=== PATIENT | male | born 1955 | race Caucasian/White ===

== ENCOUNTER 2024-12-01 00:10 | Day surgery (SDC) | payer MEDICARE, SELFPAY ==
[2024-08-16 09:54] VITALS: BMI 25.6
--- NOTE | 2024-09-03 12:40 | SUR.PREOP ---
Pt called to cancel her procedure on 09/05 due to provider availability. Pt rescheduled to 12/01 at 0800.
[2024-11-23 12:05] VITALS: BMI 26.9
--- OUTSIDE RECORDS SUMMARY | 2024-12-01 00:13 | XMS_ITS | Encounter Summary ---
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 Historical Provider Final Res ult documented in this encounter Visit Diagnoses Not on filedocumented in this encounter Care Teams Sleever Relationship Specialty Start Date End Date Nikhil Vergara MD PCP - General Internal Medicine 03/03/19 documented as of this encounter
--- OUTSIDE RECORDS SUMMARY | 2024-12-01 00:13 | XMS_ITS | Encounter Summary ---
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 Historical Provider [facility] RAYA Final Result documented in this encounter Visit Diagnoses Not on filedocumented in this encounter Care Teams Quill Cleaning Machine Operator Relationship Specialty Start Date End Date Nikhil Vergara MD PCP - General Internal Medicine 03/03/19 documented as of this encounter
--- OUTSIDE RECORDS SUMMARY | 2024-12-01 00:13 | XMS_ITS | Encounter Summary ---
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
--- OUTSIDE RECORDS SUMMARY | 2024-12-01 00:13 | XMS_ITS | Encounter Summary ---
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 Historical Provider [facility] RAAY Final Result documented in this encounter Visit Diagnoses Not on filedocumented in this encounter Care Teams Care Provider Relationship Specialty Start Date End Date Nikhil Vergara MD PCP - General Internal Medicine 03/03/19 documented as of this encounter
--- OUTSIDE RECORDS SUMMARY | 2024-12-01 00:13 | XMS_ITS | Data Portability ---
Author Organization [facility] [address] [place] [address] Care Team Providers Care [employer] Name Role Phone BERKLEY VERGARA Primary Care Provider Unavailabl e Assessment Encounter Date Assessment Date Assessment LastModified by Organization Details LastModified Time 11/02/2023 11/02/2023 Hypertension blood pressure doing fine dyslipidemia atorvastatin CAD secondary preventive measures discussed he has some insurance issues so he wants to hold off on doing any other testing right now I did order a CMP and a lipid he will consider that at we will get records from previous clinic he thinks that he may have had a pneumococcal vaccination before follow-up with me in 6 months [email or web address] Not available 11/02/2023 14:13:42 05/02/2024 05/02/2024 hypertension controlled ASHD no signs of recurrence or decompensation dyslipidemia check labs scheduled Cologuard as well follow up 6 months. Not available 05/07/2024 12:04:16 10/31/2024 10/31/2024 continue current therapy blood pressure on recheck 130/84 blood work has been ordered flu Pneumovax and Tdap declined follow up 6 months [email or web address] Not available 11/04/2024 16:24:59 Plan of Treatment Reminders Order Date Submit Date Provider Last Modified By Organization Details Last Modified Time Details Appointments ANY 15 2024 09:00A M Berkley Vergara MD Not available Not available Not available Lab CBC w/ auto diff 2024 025 [id number] [facility], [address], [address], [place], [address], 10/31/2024 13:47:24 CMP, serum or plasma 2024 025 [facility], [address], [address], [place], [address], 10/31/2024 13:47:24 PSA, total, serum or plasma 2024 025 [id number] [facility], [address], [address], [place], [address], 10/31/2024 13:47:24 lipid panel, serum 2024 025 [facility], [address], [address], [place], [address], 10/31/2024 13:47:24 noninv asive colore ctal cancer DNA + occult blood screen ing, QL, stool 2023 024 [facility] ([facility]ologuard Orders Only), [address], [address], [place], [address], 05/23/2024 20:59:38 CBC w/ auto diff 2023 024 [facility], Gustavo Wilcoxflorecita Arias, [facility], [place], [address], 10/17/2024 03:32:57 CMP, serum or plasma 2023 024 [facility] Gustavo Ari[facility], [facility], [place], [address], 10/17/2024 03:32:56 PSA, total, serum or plasma 2023 024 [facility], [facility], [facility], [place], [address], 10/19/2024 10:02:34 lipid panel, serum 2023 024 [facility], [address] [facility] [address], [address], [place], [address], 10/17/2024 03:32:54 lipid panel, serum 2023 024 [facility], [address] [facility], [address], [place], [address], 11/05/2023 18:45:40 CMP, serum or plasma 2023 024 [facility], [address] [facility], [address], [place], [address], 11/05/2023 18:06:27 Referral None record ed. Procedures None record ed. Surgeries None record ed. Imaging None record ed. Medication Orders None record ed. Patient TargetsNo targets recorded. Patient Instructions Encounter Date Encounter Id Patient Instructions Last Modified By Organization Details Last Modified Time 10/31/2024 [id number] A healthy lifestyle: care instructions [email or web address] Not available 10/31/2024 13:47:24 Reason for Referral None Reported. Results Created Date Observation Date Name Description Value Unit Range Abnormal Flag Note LastModifiedBy Organization Detail LastModifiedTime 11/05/1911/05/2023 COMPR EHENS ISMAEL METAB OLIC PANEL glucose 106 mg/dL 65-99 high Fasti ng refer ence inter luba For someo ne witho ut known diabe owen, a gluco se value betwe en 100 and 125 mg/dL is consi stent with predi abete s and shoul d be confi rmed with a follo w-up test. Not Available [facility] [address] [place], [address], 11/05/2023 18:06:27 11/05/19 24 11/05/2023 COMPR EHENS ISMAEL METAB OLIC PANEL urea nitrogen (BUN) 17 mg/dL 7-25 normal Not Available [facility] [address] [place], [address], 11/05/2023 18:06:27 11/05/19 24 11/05/2023 COMPR EHENS ISMAEL METAB OLIC PANEL creatinine 1.16 mg/dL 0.70-1 .35 normal Not Available [address], [address], 11/05/2023 18:06:27 11/05/19 24 11/05/2023 COMPR EHENS ISMAEL METAB OLIC PANEL eGFR 69 mL/mi n/1.7 3m2 > or = 60 normal Not Available [address], [address], 11/05/2023 18:06:27 11/05/19 24 11/05/2023 COMPR EHENS ISMAEL METAB OLIC PANEL BUN/creatini ne ratio SEE NOTE: (calc ) 6-22 Not Repor dao: BUN and Creat inine are withi n refer ence range . Not Available [address], [address], 11/05/2023 18:06:27 11/05/19 24 11/05/2023 COMPR EHENS ISMAEL METAB OLIC PANEL sodium 139 mmol/ L 135-14 6 normal Not Available [address], [address], 11/05/2023 18:06:27 11/05/19 24 11/05/2023 COMPR EHENS ISMAEL METAB OLIC PANEL potassium 4.3 mmol/ L 3.5-5. 3 normal Not Available [address], [address], 11/05/2023 18:06:27 11/05/19 24 11/05/2023 COMPR EHENS ISMAEL METAB OLIC PANEL chloride 102 mmol/ L 98-110 normal Not Available [address], [address], 11/05/2023 18:06:27 11/05/19 24 11/05/2023 COMPR EHENS ISMAEL METAB OLIC PANEL carbon dioxide 28 mmol/ L 20-32 normal Not Available [facility] [address] [address], [place], [address], 11/05/2023 18:06:27 11/05/19 24 11/05/2023 COMPR EHENS ISMAEL METAB OLIC PANEL calcium 9.8 mg/dL 8.6-10 .3 normal Not Available [address], [address], 11/05/2023 18:06:27 11/05/19 24 11/05/2023 COMPR EHENS ISMAEL METAB OLIC PANEL protein, total 7.1 g/dL 6.1-8. 1 normal Not Available [address], [address], 11/05/2023 18:06:27 11/05/19 24 11/05/2023 COMPR EHENS ISMAEL METAB OLIC PANEL albumin 4.7 g/dL 3.6-5. 1 normal Not Available [address], [address], 11/05/2023 18:06:27 11/05/19 24 11/05/2023 COMPR EHENS ISMAEL METAB OLIC PANEL globulin 2.4 g/dL_ (calc ) 1.9-3. 7 normal Not Available [address], [address], 11/05/2023 18:06:27 11/05/19 24 11/05/2023 COMPR EHENS ISMAEL METAB OLIC PANEL albumin/glob ulin ratio 2.0 (calc ) 1.0-2. 5 normal Not Available [address], [address], 11/05/2023 18:06:27 11/05/19 24 11/05/2023 COMPR EHENS ISMAEL METAB OLIC PANEL bilirubin, total 1.0 mg/dL 0.2-1. 2 normal Not Available [address], [address], 11/05/2023 18:06:27 11/05/19 24 11/05/2023 COMPR EHENS ISMAEL METAB OLIC PANEL alkaline phosphatase 81 U/L 35-144 normal Not Available [address], [address], 11/05/2023 18:06:27 11/05/19 24 11/05/2023 COMPR EHENS ISMAEL METAB OLIC PANEL AST 27 U/L 10-35 normal Not Available [address], [address], 11/05/2023 18:06:27 11/05/19 24 11/05/2023 COMPR EHENS ISMAEL METAB OLIC PANEL ALT 25 U/L 9-46 normal Not Available [address], [address], 11/05/2023 18:06:27 11/05/19 24 11/05/2023 LIPID PANEL , STAND DANIEL cholesterol, total 124 mg/dL <200 normal Not Available [address], [address], 11/05/2023 18:45:40 11/05/19 24 11/05/2023 LIPID PANEL , STAND DANIEL HDL cholesterol 50 mg/dL > or = 40 normal Not Available [address], [address], 11/05/2023 18:45:40 11/05/19 24 11/05/2023 LIPID PANEL , STAND DANIEL triglyceride s 76 mg/dL <150 normal Not Available [address], [address], 11/05/2023 18:45:40 11/05/19 24 11/05/2023 LIPID PANEL , STAND DANIEL LDL-choleste rol 58 mg/dL _(michaela c) normal Refer ence range : <100 Lois able range <100 mg/dL for prima ry preve ntion ; <70 mg/dL for patie nts with CHD or diabe tic patie nts with > or = 2 CHD risk facto rs. LDL-C is now calcu lated using the Rain n-Hop kins calcu leighton n, which is a valid ated novel metho d provi ding idris r accur acy than the Fried stephanie equat ion in the estim ation of LDL-C . Rain rubio SS et al. AUSTIN. 2013; 310(1 9): 2061- 2068 (http ://ed ucati on.Qu Rival IQ. com/f aq/FA Q164) Not Available [facility] [address] [address] [place], [address], 11/05/2023 18:45:40 11/05/19 24 11/05/2023 LIPID PANEL , STAND DANIEL chol/HDLC ratio 2.5 (calc ) <5.0 normal Not Available [facility] [address] [address] [place], [address], 11/05/2023 18:45:40 11/05/19 24 11/05/2023 LIPID PANEL , STAND DANIEL non HDL cholesterol 74 mg/dL _(michaela c) <130 normal For patie nts with diabe owen plus 1 major ASCVD risk facto r, treat ing to a non-H DL-C goal of <100 mg/dL (LDL- C of <70 mg/dL ) is consi donald dickerson optio n. Not Available [facility] [address] [address] [place], [address], 11/05/2023 18:45:40 11/05/19 24 11/05/2023 LIPID PANEL , STAND DANIEL copy received from: [facility] [address] [place] [place] [phone] Not Available [facility] [address] [address] [place], [address], 11/05/2023 18:45:40 11/05/19 24 11/05/2023 HEPAT IC FUNCT ION PANEL , PLASM A protein, total 7.6 g/dL 6.4-8. 4 normal Not Available [address], [address], 11/05/2023 18:45:40 11/05/19 24 11/05/2023 HEPAT IC FUNCT ION PANEL , PLASM A albumin 4.8 g/dL 3.6-5. 1 normal Not Available [address], [address], 11/05/2023 18:45:40 11/05/19 24 11/05/2023 HEPAT IC FUNCT ION PANEL , PLASM A globulin 2.8 g/dL_ (calc ) 2.2-4. 0 normal Not Available [address], [address], 11/05/2023 18:45:40 11/05/19 24 11/05/2023 HEPAT IC FUNCT ION PANEL , PLASM A albumin/glob ulin ratio 1.7 (calc ) 0.9-2. 3 normal Not Available [address], [address], 11/05/2023 18:45:40 11/05/19 24 11/05/2023 HEPAT IC FUNCT ION PANEL , PLASM A bilirubin, total 1.0 mg/dL 0.2-1. 2 normal Not Available [address], [address], 11/05/2023 18:45:40 11/05/19 24 11/05/2023 HEPAT IC FUNCT ION PANEL , PLASM A bilirubin, direct 0.2 mg/dL < or = 0.2 normal Not Available [address], [address], 11/05/2023 18:45:40 11/05/19 24 11/05/2023 HEPAT IC FUNCT ION PANEL , PLASM A bilirubin, indirect 0.8 mg/dL _(michaela c) 0.2-1. 2 normal Not Available [address] [address] [place], [address], 11/05/2023 18:45:40 11/05/19 24 11/05/2023 HEPAT IC FUNCT ION PANEL , PLASM A alkaline phosphatase 78 U/L 35-144 normal Not Available [facility] [address] [address] [place], [address], 11/05/2023 18:45:40 11/05/19 24 11/05/2023 HEPAT IC FUNCT ION PANEL , PLASM A AST 25 U/L 10-35 normal Not Available [address] [address] [place], [address], 11/05/2023 18:45:40 11/05/19 24 11/05/2023 HEPAT IC FUNCT ION PANEL , PLASM A ALT 25 U/L 9-46 normal Not Available [address] [address] [place], [address], 11/05/2023 18:45:40 11/05/19 24 11/05/2023 HEPAT IC FUNCT ION PANEL , PLASM A copy received from: [facility] [address] [facility] [address] [facility] [place] [phone] Not Available [facility] [address] [address] [place], [address], 11/05/2023 18:45:40 05/18/20 24 05/18/2024 COLOG UARD cologuard result reportable POSITI VE negati ve abnormal POSIT ISMAEL TEST RESUL T. A posit ismael Colog uard resul t shoul d be follo wed with a colon oscop y or visua l exami natio n of the colon . The eliane l value (refe rence range ) for this assay is negat ismael. TEST DESCR IPTIO N: Aneth site algor ithmi c harika sis of stool DNA-b edel krishnan with hemog lobin immun oassa y. Quant itati ve value s of indiv idual bioma rkers are not repor table and are not assoc iated with indiv idual bioma rker resul t refer ence range s. Colog uard is inten ded for color ectal cance r scree maryam of adult s of eithe r sex, 45 years or older , who are at [facility] for color ectal cance r (CRC) . Colog uard has been appro real for use by the U.S. FDA. The perfo rmanc e of Colog uard was estab lishe d in a cross secti onal study of [facility] adult s aged 50-84 . Colog uard perfo rmanc e in patie nts ages 45 to 49 years was estim ated by sub-g roup harika sis of near- age group s. Colon oscop ies perfo rmed for a posit ismael resul t may find as the most clini lesley signi fican t lesio n: color ectal cance r [4.0% ], advan woody adeno ma (incl uding sessi le beth dao polyp s great er than or equal to 1cm diame ter) [20%] or non- advan woody adeno ma [31%] ; or no color ectal neopl sarbjit [45%] . These estim ates are deriv ed from a prosp ectiv e cross -sect ional scree maryam study of 10,00 0 indiv idual s at [facility] risk for color ectal cance r who were scree vlad with both Colog uard and colon oscop y. (Sarah Quick et al, N Engl J Med 2014; 370(1 4):12 86-12 97.) Colog uard may produ ce a false negat ismael or false posit ismael resul t (no color ectal cance r or preca ncero us polyp prese nt at colon oscop y follo w up). A negat ismael Colog uard test resul t does not guara ntee the absen ce of CRC or advan woody adeno ma (pre- cance r). The curre nt Colog uard scree maryam inter luba is every 3 years . ([place]ms[place] Cance r Socie ty and U.S. Multi -Soci ety Task Force ). Colog uard perfo rmanc e data in a 10,00 0 patie nt pivot al study using colon oscop y as the refer ence metho d can [facility] ion: www.e xactl abs.c om/re suljuan . Addit ional descr iptio n of the Colog uard test proce ss, warni ngs and preca ution s can be found at www.c ologu daniel.c om. Not Available [facility] (Cologuard Orders Only) [address], [place], [address], 05/23/2024 20:59:38 10/16/19 25 10/17/2024 LIPID PANEL , STAND DANIEL cholesterol, total 136 mg/dL <200 normal Not Available [facility] [address] [address] [place], [address], 10/17/2024 03:32:53 10/16/19 25 10/17/2024 LIPID PANEL , STAND DANIEL HDL cholesterol 61 mg/dL > or = 40 normal Not Available [facility] [address] [address] [place], [address], 10/17/2024 03:32:53 10/16/19 25 10/17/2024 LIPID PANEL , STAND DANIEL triglyceride s 64 mg/dL <150 normal Not Available [facility] [address] [address] [place], [address], 10/17/2024 03:32:53 10/16/19 25 10/17/2024 LIPID PANEL , STAND DANIEL LDL-choleste rol 61 mg/dL _(michaela c) normal Refer ence range : <100 Lois able range <100 mg/dL for prima ry preve ntion ; <70 mg/dL for patie nts with CHD or diabe tic patie nts with > or = 2 CHD risk facto rs. LDL-C is now calcu lated using the [facility] n-Hop kins calcu latio n, which is a valid ated novel metho d provi ding idris r accur acy than the Fried stephanie equat ion in the estim ation of LDL-C . Rain n SS et al. AUSTIN. 2013; 310(1 9): 2061- 2068 (http ://ed ucati on.Qu jonoAmedica cassiVeebeam. com/f aq/FA Q164) Not Available [facility] [address] [address] [place], [address], 10/17/2024 03:32:53 10/16/19 25 10/17/2024 LIPID PANEL , STAND DANIEL chol/HDLC ratio 2.2 (calc ) <5.0 normal Not Available [address] [address] [facility] [place], [address], 10/17/2024 03:32:53 10/16/1910/17/2024 LIPID PANEL , STAND DANIEL non HDL cholesterol 75 mg/dL _(michaela c) <130 normal For patie nts with diabe owen plus 1 major ASCVD risk facto r, treat ing to a non-H DL-C goal of <100 mg/dL (LDL- C of <70 mg/dL ) is consi dered a thera peuti c optio n. Not Available [address] [address] [address] , [place], [address], 10/17/2024 03:32:53 10/16/1910/17/2024 COMPR EHENS ISMAEL METAB OLIC PANEL glucose 111 mg/dL 65-99 high Fasti ng refer ence inter luba For someo ne witho ut known diabe owen, a gluco se value betwe en 100 and 125 mg/dL is consi stent with predi abete s and shoul d be confi rmed with a follo w-up test. Not Available [address] [address] [address], [place], [address], 10/17/2024 03:32:56 10/16/1910/17/2024 COMPR EHENS ISMAEL METAB OLIC PANEL urea nitrogen (BUN) 13 mg/dL 7-25 normal Not Available [address], [address], 10/17/2024 03:32:56 10/16/19 25 10/17/2024 COMPR EHENS ISMAEL METAB OLIC PANEL creatinine 1.14 mg/dL 0.70-1 .35 normal Not Available [address], [address], 10/17/2024 03:32:56 10/16/19 25 10/17/2024 COMPR EHENS ISMAEL METAB OLIC PANEL eGFR 70 mL/mi n/1.7 3m2 > or = 60 normal Not Available [address], [address], 10/17/2024 03:32:56 10/16/19 25 10/17/2024 COMPR EHENS ISMAEL METAB OLIC PANEL BUN/creatini ne ratio SEE NOTE: (calc ) 6-22 Not Repor dao: BUN and Creat inine are withi n refer ence range . Not Available [address], [address], 10/17/2024 03:32:56 10/16/19 25 10/17/2024 COMPR EHENS ISMAEL METAB OLIC PANEL sodium 139 mmol/ L 135-14 6 normal Not Available [address], [address], 10/17/2024 03:32:56 10/16/19 25 10/17/2024 COMPR EHENS ISMAEL METAB OLIC PANEL potassium 4.0 mmol/ L 3.5-5. 3 normal Not Available [address], [address], 10/17/2024 03:32:56 10/16/19 25 10/17/2024 COMPR EHENS ISMAEL METAB OLIC PANEL chloride 102 mmol/ L 98-110 normal Not Available [address] [place], [address], 10/17/2024 03:32:56 10/16/19 25 10/17/2024 COMPR EHENS ISMAEL METAB OLIC PANEL carbon dioxide 29 mmol/ L 20- normal Not Available [address], [address], 10/17/2024 03:32:56 10/16/19 25 10/17/2024 COMPR EHENS ISMAEL METAB OLIC PANEL calcium 9.3 mg/dL 8.6-10 .3 normal Not Available [address], [address], 10/17/2024 03:32:56 10/16/19 25 10/17/2024 COMPR EHENS ISMAEL METAB OLIC PANEL protein, total 6.7 g/dL 6.1-8. 1 normal Not Available [address], [address], 10/17/2024 03:32:56 10/16/19 25 10/17/2024 COMPR EHENS ISMAEL METAB OLIC PANEL albumin 4.6 g/dL 3.6-5. 1 normal Not Available [address], [address], 10/17/2024 03:32:56 10/16/19 25 10/17/2024 COMPR EHENS ISMAEL METAB OLIC PANEL globulin 2.1 g/dL_ (calc ) 1.9-3. 7 normal Not Available [address], [address], 10/17/2024 03:32:56 10/16/19 25 10/17/2024 COMPR EHENS ISMAEL METAB OLIC PANEL albumin/glob ulin ratio 2.2 (calc ) 1.0-2. 5 normal Not Available [address], [address], 10/17/2024 03:32:56 10/16/19 25 10/17/2024 COMPR EHENS ISMAEL METAB OLIC PANEL bilirubin, total 1.0 mg/dL 0.2-1. 2 normal Not Available [address], [address], 10/17/2024 03:32:56 10/16/19 25 10/17/2024 COMPR EHENS ISMAEL METAB OLIC PANEL alkaline phosphatase 75 U/L 35-144 normal Not Available [facility] [address], [address], 10/17/2024 03:32:56 10/16/19 25 10/17/2024 COMPR EHENS ISMAEL METAB OLIC PANEL AST 25 U/L 10-35 normal Not Available [address], [address], 10/17/2024 03:32:56 10/16/19 25 10/17/2024 COMPR EHENS ISMAEL METAB OLIC PANEL ALT 23 U/L 9-46 normal Not Available [address], [address], 10/17/2024 03:32:56 10/16/19 25 10/17/2024 CBC (INCL UDES DIFF/ PLT) white blood cell count 4.7 thous and/u L 3.8-10 .8 normal Not Available [address], [address], 10/17/2024 03:32:57 10/16/19 25 10/17/2024 CBC (INCL UDES DIFF/ PLT) red blood cell count 4.56 nolan on/uL 4.20-5 .80 normal Not Available [address], [address], 10/17/2024 03:32:57 10/16/19 25 10/17/2024 CBC (INCL UDES DIFF/ PLT) hemoglobin 13.5 g/dL 13.2-1 7.1 normal Not Available [address], [address], 10/17/2024 03:32:57 10/16/1910/17/2024 CBC (INCL UDES DIFF/ PLT) hematocrit 41.0 % 38.5-5 0.0 normal Not Available [address], [address], 10/17/2024 03:32:57 10/16/1910/17/2024 CBC (INCL UDES DIFF/ PLT) MCV 89.9 fL 80.0-1 00.0 normal Not Available [address], [address], 10/17/2024 03:32:57 10/16/1910/17/2024 CBC (INCL UDES DIFF/ PLT) MCH 29.6 pg 27.0-3 3.0 normal Not Available [address], [address], 10/17/2024 03:32:57 10/16/1910/17/2024 CBC (INCL UDES DIFF/ PLT) MCHC 32.9 g/dL 32.0-3 6.0 normal For adult s, a sligh t decre ase in the calcu lated MCHC value (in the range of 30 to 32 g/dL) is most likel y not clini lesley signi bereket t; suman er, it shoul d be inter prete d with cauti on in corre latio n with other red cell gideon eters and the patie nt's clini michaela condi tion. Not Available [address], [address], 10/17/2024 03:32:57 10/16/1910/17/2024 CBC (INCL UDES DIFF/ PLT) RDW 12.3 % 11.0-1 5.0 normal Not Available [address], [address], 10/17/2024 03:32:57 10/16/19 25 10/17/2024 CBC (INCL UDES DIFF/ PLT) platelet count 250 thous and/u L 140-40 0 normal Not Available [address], [address], 10/17/2024 03:32:57 10/16/19 25 10/17/2024 CBC (INCL UDES DIFF/ PLT) MPV 10.8 fL 7.5-12 .5 normal Not Available [address], [address], 10/17/2024 03:32:57 10/16/19 25 10/17/2024 CBC (INCL UDES DIFF/ PLT) absolute neutrophils 2923 cells /uL 1500-7 800 normal Not Available [address], [address], 10/17/2024 03:32:57 10/16/19 25 10/17/2024 CBC (INCL UDES DIFF/ PLT) absolute lymphocytes 1039 cells /uL 850-39 00 normal Not Available [address], [address], 10/17/2024 03:32:57 10/16/19 25 10/17/2024 CBC (INCL UDES DIFF/ PLT) absolute monocytes 479 cells /uL 200-95 0 normal Not Available [address], [address], 10/17/2024 03:32:57 10/16/19 25 10/17/2024 CBC (INCL UDES DIFF/ PLT) absolute eosinophils 240 cells /uL 15-500 normal Not Available [address], [address], 10/17/2024 03:32:57 10/16/19 25 10/17/2024 CBC (INCL UDES DIFF/ PLT) absolute basophils 19 cells /uL 0-200 normal Not Available [address], [address], 10/17/2024 03:32:57 10/16/19 25 10/17/2024 CBC (INCL UDES DIFF/ PLT) neutrophils 62.2 % normal Not Available [address], [address], 10/17/2024 03:32:57 10/16/19 25 10/17/2024 CBC (INCL UDES DIFF/ PLT) lymphocytes 22.1 % normal Not Available [facility] [address], [address], 10/17/2024 03:32:57 10/16/19 25 10/17/2024 CBC (INCL UDES DIFF/ PLT) monocytes 10.2 % normal Not Available [address], [address], 10/17/2024 03:32:57 10/16/19 25 10/17/2024 CBC (INCL UDES DIFF/ PLT) eosinophils 5.1 % normal Not Available [address], [address], 10/17/2024 03:32:57 10/16/19 25 10/17/2024 CBC (INCL UDES DIFF/ PLT) basophils 0.4 % normal Not Available [address], [address], 10/17/2024 03:32:57 10/16/1910/17/2024 PSA, TOTAL PSA, total 2.16 NG/mL < or = 4.00 normal The total PSA value from this assay syste m is stand ardiz ed again st the WHO stand daniel. The test resul t will be appro ximat josey 20% lower when elvin red to the equim olar- stand ardiz ed total PSA ([place]augherty man Coult er). Elvin rison of seria l PSA resul ts shoul d be inter prete d with this fact in mind. This test was perfo rmed using the Sieme ns chemi lumin escen t metho d. Value s obtai vlad from diffe rent assay metho ds canno t be used inter burnett eably . PSA level s, regar dless of value , shoul d not be inter prete d as absol [place] evide nce of the prese nce or absen ce of disea se. Not Available [facility] [address] [place], [address], 10/17/2024 03:32:58 Result Notes None recorded. Problems Name Problem SNOMED Code Status Onset Date Resolution Date Notes Provider Name and Address Organization Details Recorded Time Essential hypertension 33525764 Active 2024 RAFAEL Hernandez, [place] - [facility] 10:38:09 Coronary atherosclerosi s 112681528 Active 2024 Chris Ramsey [place] null, [place] [facility] 10:38:10 Screening for malignant neoplasm of colon Active 2024 Chris Ramsey [place], [place] [facility] 10:38:12 Hyperlipidemia 89360477 Active 2024 Chris Ramsey [place] [facility] 10:38:14 Body mass index 25-29 - overweight 015863941 Active 2024 Chris Ramsey [place] [facility] 10:38:25 Pneumococcal vaccination declined 523728122 Active 2024 Berkley Vergara MD Attn: Yobani bynum,[address] [facility], [place], [address], [place] [facility] 16:25:21 Tetanus vaccination declined by patient 234120423 Active 2024 Berkley Vergara MD Attn: Yobani bynum,[address] [facility], [place], [address], [place] [facility] 16:25:21 Influenza vaccination declined 000257636 Active 2024 Berkley Vergara MD Attn: Yobani bynum,[address] [facility], [place], [address], [place] - [facility] 5 16:25:23 Problem Notes None recorded. Medical Equipment None Reported. Allergies Allergen ID Allergen Name Allergen Category Reaction Reaction Severity Criticality Documentation Date Start Date Code Code System Note Provider Name and Address Organization Details Recorded Time 866025 Plavix medicatio n hives Not available Not available 11/02/2023 [id number] RxNorm Not Available Not Available Not Available Medications Name Sig Start Date Stop Date Status Note LastModified by Organization Details LastModified Time amoxicillin 500 mg capsule TAKE 1 CAPSULE BY MOUTH THREE TIMES DAILY UNTIL GONE 11/01 completed Not Available Not Available Not Available atorvastati n 80 mg tablet TAKE 1 TABLET BY MOUTH EVERY OTHER DAY ALTERNATI NG WITH 1/2 TAB EVERY OTHER NIGHT active Not Available Not Available No t Available hydrocodone 5 mg-acetamin ophen 325 mg tablet TAKE 1 TABLET BY MOUTH EVERY 4 TO 6 HOURS NEEDED FOR PAIN (CAUTION SEDATION) 10/31 completed Not Available Not Available Not Available isosorbide mononitrate ER 30 mg tablet,exte nded release 24 hr TAKE 1 TABLET BY MOUTH ONCE DAILY active Not Available Not Available No t Available amlodipine 5 mg tablet TAKE 1 TABLET BY MOUTH ONCE DAILY active Not Available Not Available No t Available aspirin 81 mg capsule Take 1 capsule every day by oral route. active Not Available Not Available No t Available Vitals Date Recorded Body height Body mass index (BMI) Body weight Respiratory rate Heart rate Oxygen saturation Oxygen saturation in Arterial blood by Pulse oximetry Systolic blood pressure Diastolic blood pressure Provider Name and Address Organization Details Last Updated DateTime 4 180.34 cm 26.9 kg/m2 90597.3 3 g 14 /min 62 /min 97 % 97 % 136 mm[Hg] 82 mm[Hg] TOM Ramirez [place] - [facility] 4 09:59:52 Date Recorded Body height Body mass index (BMI) Body weight Heart rate Oxygen saturation Oxygen saturation in Arterial blood by Pulse oximetry Systolic blood pressure Diastolic blood pressure Provider Name and Address Organization Details Last Updated DateTime 4 180.34 cm 24.8 kg/m2 68754 g 50 /min 98 % 98 % 138 mm[Hg] 68 mm[Hg] Yadira Barr [place] - [facility] 4 10:03:30 Date Recorded Body height Body mass index (BMI) Body weight Heart rate Oxygen saturation Oxygen saturation in Arterial blood by Pulse oximetry Systolic blood pressure Diastolic blood pressure Systolic blood pressure Diastolic blood pressure Provider Name and Address Organization Details Last Updated DateTime 180.34 cm 26.1 kg/m2 13614.0 5 g 68 /min 98 % 98 % 140 mm[Hg] 76 mm[Hg] 130 mm[Hg] 84 mm[Hg] Yadira Barbara RAFAEL [place] - [facility] 5 10:25:01 Social History Question Answer Notes LastModified by Organizat ion Details LastModified Time Tobacco Smoking Status Former Smoker quit 11 yrs ago 11/02/23 TOM Ramirez, [facility] 11/02/2023 09:56:53 What Is Your Level Of Alcohol Consumption? Occasional Information not available 10/31/2024 What Is Your Level Of Caffeine Consumption? Moderate Information not available 10/31/2024 What Was The Date Of Your Most Recent Tobacco Screening? 10/31/2024 Information not available 10/31/2024 What Is Your Current Pack Years? [email or web address] [email or web address] Information not available 11/02/2023 At What Age Did You Start Smoking Tobacco? 15 Information not available 11/02/2023 How Much Tobacco Do You Smoke? 2 PPD Information not available 11/02/2023 Do You Use Any Illicit Or Recreational Drugs? No Information not available 10/31/2024 Has Tobacco Cessation Counseling Been Provided? Yes Information not available 10/31/2024 On What Date Was Tobacco Cessation Counseling Provided? 10/31/2024 Information not available 10/31/2024 How Many Years Have You Smoked Tobacco? 43 Information not available 11/02/2023 Do You Or Have You Ever Used Any Other Forms Of Tobacco Or Nicotine? No Information not available 10/31/2024 Sex: Unknown Functional Status None recorded. Mental Status None recorded. Family History Relationship Description Onset Age of this Age Resolved Age Notes LastModified by Organization Details LastModified Time Father Diabetes mellitus [email or web address] Not available 12/2023 09:57:21 Father Congestive heart failure [email or web address] Not available 12/2023 09:57:48 Medical History Condition Response Heart Attack ([place]) Y Immunizations Vaccine Type Date Status Note Provider Nam e and Address Organization Details Recorded Time COVID-19, mRNA, LNP-S, PF, 100 mcg/0.5mL dose or 50 mcg/0.25mL dose 06/23/2021 completed Shruthi Manuel [place] null, [place] - [facility] 10/31/2024 09:19:37 COVID-19 vaccine, vector-nr, rS-Ad26, PF, 0.5 mL 01/10/2021 completed Shruthi Manuel [place], [place] - [facility] 10/31/2024 09:19:37 Past Encounters Encounter ID Performer Location Encounter Start Date Encounter Closed Date Diagnosis/Indication Diagnosis SNOMED-CT Code Diagnosis ICD10 Code Diagnosis Note [id number] MD Dali Cole (Adult Med) [address] [place] [address] [phone] 11/02/2023 09:39:32 11/02/2023 11:00:20 Essential hypertension 80987379 I10 Hyperlipidemia 05858433 E78.5 Coronary atherosclerosis 711330124 I25.10 [id number] [facility] [address] [place] [address] [id number] 05/02/2024 09:46:28 05/02/2024 10:40:11 Essential hypertension 25851615 I10 Coronary atherosclerosis 787425911 I25.10 Screening for malignant neoplasm of colon 499531560 Z12.11 Hyperlipidemia 79651697 E78.5 [id number] MD Dali Cole (Adult Med) [address] [place] [address] [id number] 10/31/2024 09:41:35 10/31/2024 10:43:17 Body mass index 25-29 - overweight 639060994 Z68.26 Essential hypertension 50458916 I10 Coronary atherosclerosis 116985171 I25.10 Hyperlipidemia 24385514 E78.5 Overweight 530775724 E66 .3 Influenza vaccination declined 000906170 Z28.21 Tetanus va ccination declined by patient 822261925 Z28.21 Pneumococc al vaccination declined 416771483 Z28.21 Health Concerns Section Related Observation LastModified by Organization Detai ls LastModified Time None Recorded Concern Status LastModified by Organization Details LastModified Time None Recorded Advance Directives Directive None Recorded Payers Encounter Date Sequence Insurance Name Policy Number Policy Zaidi Covered Member ID Zaidi Member ID Guarantor Name 11/02/2023 1 *SELF PAY* Bandar Vazquez 05/02/2024 1 *SELF PAY* Bandar Vazquez 10/31/2024 1 [employer] (MEDICARE REPLACEMENT/A DVANTAGE - PPO) Eugene Vazquez [id number] Eugene Vazquez Notes Date Note Type Note Provider Name and Address Organization Details Recorded Time 4 text/html Hypertension no headache no dizzinessDyslipidemia taking his atorvastatin without side effectsCAD stent no chest pain or shortness of breath Berkley Vergara MD Attn: Accounting, [address] [place], [address], [facility] [place] 11/02/2023 14:14:04 4 text/html hypertension no headache or dizziness. CAD no angina or anginal equivalents. Dyslipidemia diet is good taking his atorvastatin without any side effects Berkley Vergara MD Attn: [employer]ing[address] [place], [address], [facility] [place] 05/07/2024 12:04:32 5 text/html hypertension no headache or dizziness CAD no anginal equivalents hyperlipidemia he is taking the atorvastatin without any problems Berkley Vergara MD Attn: Accounting[address] [place], [address], [facility] [place] 11/04/2024 16:25:43
--- OUTSIDE RECORDS SUMMARY | 2024-12-01 00:13 | XMS_ITS | Data Portability ---
Author Organization [place] - S [employer] [place], Main Office Address [address] [place] [address] Assessment Encounter Date Assessment Date Assessment LastModified by Organization Details LastModified Time 11/13/2022 11/13/2022 Hypertension doing well continue current therapy CAD secondary preventive measures discussed regular exercise Hyperlipidemia discussed Blood work ordered Return to clinic 6 months Not available 11/14/2022 15:26:26 05/11/2023 05/11/2023 Continue current therapy follow-up in 6 months he had blood work done about 3 weeks ago we do not have a copy we are trying to retrieve it [email or web address] Not available 05/11/2023 22:34:10 Plan of Treatment Reminders Order Date Submit Date Provider Last Modified By Organization Details Last Modified Time Details Appointments None recorded . Lab PSA, serum or plasma 023 11/14/19 23 CHIKA Ethonova [facility], [address], [place], [address], 3 14:09:06 CMP, serum or plasma 023 11/14/19 23 [email or web address] 82 Ethonova [facility], [address], [place], [address], 4 14:13:02 lipid panel, serum 023 11/14/19 23 [email or web address] 82 Ethonova [facility], [address], [place], [address], 4 14:13:02 Referral None recorded . Procedures None recorded . Surgeries None recorded . Imaging None recorded . Medication Orders None recorded . Patient TargetsNo targets recorded. Patient InstructionsNo instructions recorded. Reason for Referral None Reported. Results Created Date Observation Date Name Description Value Unit Range Abnormal Flag Note LastModifiedBy Organization Detail LastModifiedTime 05/13/20 21 05/13/2021 COLOG UARD cologuard result reportable negati ve negati ve NEGAT ISMAEL TEST RESUL T. A negat ismael Colog uard resul t indic ates a low likel ihood that a color ectal cance r (CRC) or advan woody adeno ma (pato omato us polyp s with more advan woody pre-m align ant featu res) is prese nt. The chanc e that a perso n with a negat ismael Colog uard test has a color ectal cance r is less than 1 in 1500 (nega tive predi ctive value >99.9 %) or has an advan woody adeno ma is less than 5.3% (nega tive predi ctive value 94.7% ). These data are based on a prosp ectiv e cross -sect ional study of 10,00 0 indiv idual s at [facility] risk for color ectal cance r who were scree vlad with both Colog uard and colon oscop y. (Sarah Carney. et al, N Engl J Med 2014; 370(1 4):12 86-12 97) The eliane l value (refe rence range ) for this assay is negat ismael. COLOG UARD RE-SC REENI NG RECOM MENDA TION: Perio dic color ectal cance r scree maryam is an impor tant part of preve ntive healt hcare for asymp tomat ic indiv idual s at [place] risk for color ectal cance r. Follo wing a negat ismael Colog uard resul t, the Ameri can Cance r Socie ty and U.S. Multi -Soci ety Task Force scree maryam guide lines recom mend a Colog uard re-sc reeni ng inter luba of 3 years . Refer ences : Ameri can Cance r Socie ty Guide line for Color ectal Cance r Scree maryam: https ://josselin w.can cer.o rg/ca ncer/ colon -rect al-ca ncer/ detec tion- diagn osis- stagi ng/ac s-rec ommen datio ns.ht ml.; Johnathan BELLE, Kevin BLACKMON, Latonia VERGARA, Color ectal Cance r Scree maryam: Recom menda tions for Physi cians and Patie nts from the U.S. Multi -Soci ety Task Force on Color ectal Cance r Scree maryam , Jose Soto oente rolog y 2017; 112:1 016-1 030. TEST DESCR IPTIO N: Tonica site algor ithmi c harika sis of stool DNA-b iomar kers with hemog lobin immun oassa y. Quant itati ve value s of indiv idual bioma rkers are not repor table and are not assoc iated with ind idual bioma rker resul t refer ence range s. Colog uard is inten ded for color ectal cance r scree maryam of adult s of eithe r sex, 45 years or older , who are at [facility] for color ectal cance r (CRC) . Colog uard has been appro real for use by the U.S. FDA. The perfo rmanc e of Colog uard was estab lishe d in a cross secti onal study of [facility] adult s aged 50-84 . Colog uard perfo rmanc e in patie nts ages 45 to 49 years was estim ated by sub-g roup harika sis of near- age group s. Colon oscop ies perfo rmed for a posit ismael resul t may find as the most clini lesley signi ficalexander t lesio n: color ectal cance r [...] of 10,00 0 indiv idual s at [facility] risk for color ectal cance r who [...] inter luba is every 3 years . (Amer ican Cance r Socie ty and U.S. Multi -Soci ety Task Force ). Colog uard perfo rmanc e data in a 10,00 0 patie nt pivot al study using colon oscop y as the refer ence metho d can be acces sed at the follo wing locat ion: www.e xactl abs.c om/re jag . Addit ional descr iptio n of the Colog uard test proce ss, warni ngs and preca ution s can be found at www.c ologu daniel.c om. Not Available [employer] (Cologuard Orders Only) [address], [place], [address], 05/18/2021 17:43:16 Result Notes None recorded. Problems Name Problem SNOMED Code Status Onset Date Resolution Date Notes Provider Name and Address Organization Details Recorded Time Myocardial infarction 58236513 Active 2014 Not Available [facility] 3 06:02:33 Dyslipidemia 675840945 Active 2014 Not Available [facility] 3 06:02:33 Stented artery 830700501 Active Not Available [facility] 3 06:02:33 Coronary arteriosclero sis 68612314 Active 2014 Not Available [facility] 3 06:02:33 Essential hypertension 30424796 Active 2021 Not Available [facility] 3 06:02:33 Problem Notes None recorded. Procedures Surgical History Date Name Laterality Status Provider Name and Address Organization Details Recorded Time Cardiac Stent Placement completed Not Available [facility] 10/28/2022 05:56:38 Imaging Results None recorded. Procedure Notes None recorded. Medical Equipment None Reported. Allergies Allergen ID Allergen Name Allergen Category Reaction Reaction Severity Criticality Documentation Date Start Date Code Code System Note Provider Name and Address Organization Details Recorded Time 36467 Plavix medicatio n rash Not available Not available 10/28/2022 91631 2 RxNorm Not Available [facility] 06:09:22 Medications Name Sig Start Date Stop Date Status Note LastModified by Organization Details LastModified Time amoxicillin 500 mg capsule TAKE 1 CAPSULE BY MOUTH THREE TIMES DAILY UNTIL GONE 05/06 completed Not Available Not Available Not Available atorvastati n 40 mg tablet TAKE 1 TABLET BY MOUTH ONCE DAILY 11/07 completed Not Available Not Available Not Available atorvastati n 80 mg tablet TAKE 1 TAB BY MOUTH EVERY OTHER DAY ALTERNATI NG WITH 1/2 TAB EVERY OTHER NIGHT active Not Available Not Available No t Available aspirin 325 mg tablet Take 1 tablet every day by oral route. 05/15 completed Not Available Not Available Not Available hydrocodone 5 mg-acetamin ophen 325 mg tablet TAKE 1 TABLET BY MOUTH EVERY 4 TO 6 HOURS NEEDED FOR PAIN CAUTION SEDATION active Not Available Not Available No t Available isosorbide mononitrate ER 30 mg tablet,exte nded release 24 hr TAKE 1 TABLET BY MOUTH ONCE DAILY active Not Available Not Available No t Available acetaminoph en 300 mg-codeine 30 mg tablet 04/30 completed Not Available Not Available Not Available amlodipine 5 mg tablet TAKE 1 TABLET BY MOUTH ONCE DAILY active Not Available Not Available No t Available aspirin 81 mg tablet,delvis yed release Take 1 tablet every day by oral route. 03/18 completed Not Available Not Available Not Available simvastatin 40 mg tablet Take 1 tablet every day by oral route. 03/18 completed Not Available Not Available Not Available isosorbide dinitrate 30 mg tablet Take 1 tablet every day by oral route. 01/07 completed Not Available Not Available Not Available nitroglycer in 0.4 mg sublingual tablet DISSOLVE ONE TABLET UNDER THE TONGUE EVERY 5 MINUTES NEEDED FOR CHEST PAIN. DO NOT EXCEED A TOTAL OF 3 DOSES IN 15 MINUTES (NO RELIEF CALL 911) active Not Available Not Available No t Available methylpredn isolone 4 mg tablets in a dose pack 01/07 completed Not Available Not Available Not Available lisinopril 2.5 mg tablet TAKE 1 TABLET BY MOUTH ONCE DAILY 11/07 completed Not Available Not Available Not Available metoprolol tartrate 25 mg tablet TAKE 1/4 of a TABLET (25 MG) BY ORAL ROUTE 2 TIMES PER DAY 03/10 completed Not Available Not Available Not Available Brilinta 90 mg tablet Take 1 tablet twice a day by oral route. 09/11 completed Not Available Not Available Not Available Brilinta 60 mg tablet Take 1 tablet twice a day by oral route. 03/18 completed Not Available Not Available Not Available [employer] COVID-19 Ag Self Test kit Use as Directed on the Package 05/15 completed Not Available Not Available Not Available aspirin 81 mg capsule Take 1 capsule every day by oral route. 2021 active Not Available Not Available Not Avai lable Vitals Date Recorded Body mass index (BMI) Body height Heart rate Body temperature Body weight Systolic blood pressure Diastolic blood pressure Provider Name and Address Organization Details Last Updated DateTime 1 26.2 kg/m2 176.53 cm 60 /min 97.1 [degF] 35367.6 3 g 110 mm[Hg] 62 mm[Hg] Not Available [facility] 3 05:58:09 Date Recorded Body mass index (BMI) Body height Heart rate Body temperature Body weight Systolic blood pressure Diastolic blood pressure Provider Name and Address Organization Details Last Updated DateTime 2 28.2 kg/m2 176.53 cm 60 /min 97.2 [degF] 37953.9 2 g 126 mm[Hg] 70 mm[Hg] Not Available [facility] 3 05:58:10 Date Recorded Body mass index (BMI) Body height Heart rate Body temperature Body weight Systolic blood pressure Diastolic blood pressure Provider Name and Address Organization Details Last Updated DateTime 2 27.4 kg/m2 176.53 cm 55 /min 97.1 [degF] 64869.3 7 g 126 mm[Hg] 78 mm[Hg] Not Available [facility] 3 05:58:10 Date Recorded Body height Body mass index (BMI) Body weight Body temperature Heart rate Systolic blood pressure Diastolic blood pressure Provider Name and Address Organization Details Last Updated DateTime 3 176.53 cm 27.9 kg/m2 10689.7 4 g 98.5 [degF] 55 /min 120 mm[Hg] 78 mm[Hg] Darshana nichols RN [facility] [employer] [facility] 3 09:53:53 Date Recorded Body height Body mass index (BMI) Body weight Body temperature Heart rate Systolic blood pressure Diastolic blood pressure Provider Name and Address Organization Details Last Updated DateTime 3 176.53 cm 28.1 kg/m2 72775.3 3 g 97.2 [degF] 57 /min 122 mm[Hg] 70 mm[Hg] TOM Hutson [facility] [employer] [facility] 3 10:57:46 Social History Question Answer Notes LastModified by Organization Details LastModified Time Tobacco Smoking Status Former Smoker quit 10/06/13 Not Available [facility] 10/28/2022 05:53:48 Do You Have An Advance Directive? No MIGRATION.030 [id number] Information not available 10/28/2022 What Is Your Level Of Alcohol Consumption? Occasional MIGRATION.030 858512 Information not available 10/28/2022 Are You Blind Or Do You Have Difficulty Seeing? No MIGRATION.030 256151 Information not available 10/28/2022 What Is Your Level Of Caffeine Consumption? Occasional MIGRATION.030 196503 Information not available 10/28/2022 In The 14 Days Before Symptom Onset, Have You Had Close Contact With A Laboratory-confi rmed COVID-19 While That Case Was Ill? No MIGRATION.030 261411 Information not available 10/28/2022 In The 14 Days Before Symptom Onset, Have You Had Close Contact With A Person Who Is Under Investigation For COVID-19 While That Person Was Ill? No MIGRATION.030 315237 Information not available 10/28/2022 Are You Deaf Or Do You Have Serious Difficulty Hearing? No MIGRATION.0301 556299 Information not available 10/28/2022 What Type Of Diet Are You Following? REGULAR MIGRATION.030 803750 Information not available 10/28/2022 What Is The Highest Grade Or Level Of School You Have Completed Or The Highest Degree You Have Received? [id number] MIGRATION.0301 200864 Information not available 10/28/2022 What Is Your Occupation? Retired MIGRATION.030 426781 Information not available 10/28/2022 Have There Been Any Changes To Your Family Or Social Situation? No MIGRATION.0301 511977 Information not available 10/28/2022 What Is The Fluoride Status Of Your Home? Unknown MIGRATION.030 645521 Information not available 10/28/2022 When Did You Quit Smoking? 6-10yearssincelastc igarette MIGRATION.030 050423 Information not available 10/28/2022 Are There Any Guns Present In Your Home? No MIGRATION.0301 578489 Information not available 10/28/2022 Do You Use Insect Repellent Routinely? No MIGRATION.0301 804914 Information not available 10/28/2022 Where Do You Live? 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 No MIGRATION.0301 229328 Information not available 10/28/2022 What Was The Date Of Your Most Recent Tobacco Screening? 05/11/2023 [email or web address] Information not available 05/11/2023 Have You Ever Been Counseled For Unhealthy Alcohol Use? No MIGRATION.0301 286577 Information not available 10/28/2022 Do You Have Any Pets? Yes MIGRATION.0301 101910 Information not available 10/28/2022 What Is Your Relationship Status? MIGRATION.030 323702 Information not available 10/28/2022 Do You Use Your Seat Belt Or Car Seat Routinely? Yes MIGRATION.0301 540811 Information not available 10/28/2022 Do You Have Smoke And Carbon Monoxide Detectors In Your Home? Yes MIGRATION.0301 000229 Information not available 10/28/2022 Are You Passively Exposed To Smoke? No MIGRATION.0301 142003 Information not available 10/28/2022 Are There Any Smokers In Your House? No MIGRATION.0301 974846 Information not available 10/28/2022 Do You Feel Stressed (tense, Restless, Nervous, Or Anxious, Or Unable To Sleep At Night)? TS0908-9 MIGRATION.0301 868918 Information not available 10/28/2022 Do You Use Any Illicit Or Recreational Drugs? No MIGRATION.0301 820124 Information not available 10/28/2022 Do You Use Sunscreen Routinely? No MIGRATION.0301 237117 Information not available 10/28/2022 Has Tobacco Cessation Counseling Been Provided? No MIGRATION.0301 626818 Information not available 10/28/2022 Have You Recently Traveled Abroad? No MIGRATION.0301 852440 Information not available 10/28/2022 Do You Have Any Dietary Restrictions? No MIGRATION.0301 646909 Information not available 10/28/2022 Do You Or Have You Ever Used Any Other Forms Of Tobacco Or Nicotine? No MIGRATION.0301 791878 Information not available 10/28/2022 Sex: Male Functional Status Question Answer Note LastModified by Organizat [employer] Details LastModified Time Do you have difficulty walking or climbing stairs? No MIGRATION.0267056 026 Information not available 10/28/2022 Do you have transportation difficulties? No MIGRATION.6637563 026 Information not available 10/28/2022 Are you able to walk? YESWOREST MIGRATION.7384916 026 Information not available 10/28/2022 Do you have difficulty doing errands alone? No MIGRATION.2691919 026 Information not available 10/28/2022 Are you able to care for yourself? Yes MIGRATION.1411872 026 Information not available 10/28/2022 Do you have difficulty dressing or bathing? No MIGRATION.0246802 026 Information not available 10/28/2022 What is your exercise level? Moderate MIGRATION.7306209 026 Information not available 10/28/2022 Mental Status Question Answer Note LastModified by Organizat ion Details LastModified Time Do you have difficulty concentrating, remembering or making decisions? No MIGRATION.693632646 6 Information not available 10/28/2022 Family History Relationship Description Onset Age of this Age Resolved Age Notes LastModified by Organization Details LastModified Time Mother General health good MIGRATION.636 [id number] Not available 10/28/2022 05:56:39 Father Diabetes mellitus MIGRATION.274 [id number] Not available 10/28/2022 05:56:39 Father Heart disease MIGRATION.555 [id number] Not available 10/28/2022 05:56:39 Medical History Condition Response NERVE DISEASE N BLINDNESS N RHEUMATIC FEVER N KIDNEY STONES N BLADDER PROBLEMS N MRSA N OTHER # 1 N POLIO N LUNG DISEASE/DISORDER N HISTORY OF DRUG ABUSE N RADIATION / CHEMOTHERAPY N COPD N Other # 2 N BLOOD DISEASES N EAR OR HEARING PROBLEMS N MUMPS N SHINGLES N DEPRESSION (INCLUDING POST ) N BOWEL PROBLEMS N STROKE/TIA N ULCERS N BENIGN PROSTATIC HYPERPLASIA N MEASLES N HYPOTENSION N MYOCARDIAL INFARCTION Y OBESITY N GERD/NAUSEA N ANEURYSM N URINARY/BLADDER/KIDNEY PROBLEMS N CORONARY ARTERY DISEASE (CAD) Y ADDICTION CONCERNS N Impotence N ENDOMETRIOSIS N USE OF BLOOD THINNERS N SKIN PROBLEMS N GASTROINTESTINAL DISORDER N PERIPHERAL VASCULAR DISEASE N MUSCLE,JOINT OR BONE PROBLEMS N GASTROINTESTINAL BLEEDING N BLOOD CLOTS N ASTHMA N CATARACTS N ERECTILE DYSFUNCTION N VARICOSITIES N GI PROBLEMS N Low Testosterone N INFERTILITY N AIDS/HIV N CHEMOTHERAPY / RADIATION N LIVER DISEASE N MALE HYPOGONADISM N HYPERTENSION Y Deficiency N TOURETTE'S N ANXIETY DISORDER N BLOOD TRANSFUSION N ANEMIA/BLOOD DISORDER N CHRONIC EAR INFECTIONS N BRONCHITIS N TUBERCULOSIS N GLAUCOMA N FOOT PROBLEM N DIVERTICULITIS N SLEEP APNEA N CHICKENPOX N INFECTIOUS DISEASE N PROSTATE N HEART ARRHYTHMIA N INSOMNIA N HIGH CHOLESTEROL / HYPERLIPIDEMIA Y EYE PROBLEMS N HYPERTHYROIDISM N EDEMA N CHRONIC PAIN SYNDROME N HYPOTHYROIDISM N CAROTID BLOCKAGE N CONSTIPATION N BACK / NECK PROBLEMS N HAVE YOU BEEN HOSPITALIZED OR SEEN IN [facility] IN THE PAST YEAR ? N ATHEROSCLEROSIS N BREAST PROBLEMS N DIALYSIS N ECZEMA N OSTEOPOROSIS N ARTHRITIS N APPENDICITIS N DIABETES, TYPE N BAD TEETH N ENT N HEARTBURN / REFLUX N AUTISM SPECTRUM DISORDER (ASD) N HEPATITIS / LIVER DISEASE N GOUT N SLEEP DISORDER N ALZHEIMER'S DISEASE N Brain Problems N DEMENTIA N HERPES N SEIZURES/EPILEPSY N HEADACHES/MIGRAINES N VASCULAR DISEASE N PACEMAKER N Blood Disorder N DIZZINESS N HEART DISEASE/HEART PROBLEMS N KIDNEY DISEASE N MULTIPLE SCLEROSIS N CANCER: SPECIFY N CARDIAC ARRHYTHMIA N ATRIAL FIBRILLATION N Gall Stones N PULMONARY EMBOLISM N AUTOIMMUNE DISEASE N Immunizations Vaccine Type Date Status Note Provider Nam e and Address Organization Details Recorded Time COVID-19, mRNA, LNP-S, PF, 100 mcg/0.5mL dose or 50 mcg/0.25mL dose 06/23/2021 completed Not Available [facility] 3 06:09:02 COVID-19 vaccine, vector-nr, rS-Ad26, PF, 0.5 mL 01/10/2021 completed Not Available [facility] 3 06:09:03 Past Encounters Encounter ID Performer Location Encounter Start Date Encounter Closed Date Diagnosis/Indication Diagnosis SNOMED-CT Code Diagnosis ICD10 Code Diagnosis Note [id number] [facility] [address] [address] 05/06/2021 00:00:00 06/07/2021 10:55:47 [id number] [facility] [address] [place] [address] Ave[address] [address] 11/10/2021 00:00:00 11/10/2021 21:12:08 [id number] [facility] [address] [place] [address] Ave[address] [address] 05/15/2022 00:00:00 05/16/2022 13:20:50 [id number] Nikhil Vergara MD [facility] [address] [place] [address] Ave[address] [address] 11/13/2022 09:38:21 11/13/2022 10:54:46 Essential hypertension 24673265 I10 Screening for malignant neoplasm of prostate 875864689 Z12.5 Coronary arteriosclerosis 00321893 I25.10 Dyslipidemia 755836727 E 78.5 [id number] Nikhil Vergara MD [facility] [address] , [place] [address] 05/11/2023 10:49:04 05/11/2023 11:35:58 Essential hypertension 21542633 I10 Dyslipidemia 611731982 E 78.5 Coronary arteriosclerosis 67421060 I25.10 Health Concerns Section Related Observation LastModified by Organization Detai ls LastModified Time None Recorded Concern Status LastModified by Organization Details LastModified Time None Recorded Advance Directives Directive N: Payers Encounter Date Sequence Insurance Name Policy Number Policy Zaidi Covered Member ID Zaidi Member ID Guarantor Name 11/13/2022 1 [employer] (MEDICARE REPLACEMENT/A DVANTAGE - PPO) Eugene Vazquez [id number] Eugene Vazquez 05/11/2023 1 [employer] (MEDICARE REPLACEMENT/A DVANTAGE - PPO) Eugene Vazquez [id number] Eugene Vazquez Notes Date Note Type Note Provider Name and Address Organization Details Recorded Time 3 text/html CAD no chest painhypertension no headache no dizzinessdyslipidemia tolerating diet and medicine Nikhil Vergara MD [address] [facility], [place], [address], [employer] 11/14/2022 15:26:45 3 text/html CAD no chest painhypertension no headache no dizzinessdyslipidemia tolerating diet and medicine Nikhli Vergara MD [address], [place], [address], [employer] 05/11/2023 22:34:27
--- OUTSIDE RECORDS SUMMARY | 2024-12-01 00:13 | XMS_ITS | Encounter Summary ---
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 Historical Provider [facility] CHAR RAYA Final Result * CARDIOLOGY REPORT (02/12/2016 12:00 AM CDT) Anatomical Region Laterality Modality Other Narrative 02/12/2016 12:00 AM CDT Ordered by an unspecified provider. us Historical Provider [facility] CHAR RAYA Final Result documented in this encounter Visit Diagnoses Not on filedocumented in this encounter Care Teams Fiber Analyst Relationship Specialty Start Date End Date Nikhil Vergara MD PCP - General Internal Medicine 03/03/19 documented as of this encounter
--- OUTSIDE RECORDS SUMMARY | 2024-12-01 00:14 | XMS_ITS | Referral Summary ---
Author Organization [facility] Address [address] [place] [address] Care Team Providers Care Casting Operator Name Role Phone Nikhil Vergara MD Primary Care Provider [phone] Encounters Date Type Department Care Team Description 11/28/2024 Results Follow-Up [facility] Medical [facility] Cardiology [address] [place] [address] Naa Muñoz RN from Last 3 Months Allergies Active Allergy Reactions Criticality Noted Date Comments Clopidogrel Unknown,Rash Medium 03/08/2019 Medications aspirin 81 mg enteric coated tablet Take 1 tablet (81 mg total) by mouth daily 03/06/20 20 Active nitroglycerin (NITROSTAT) 0.[address] 1 tablet (0.4 mg total) under the tongue every 5 (five) minutes as needed for chest pain May repeat up to 3 times, if no relief call 911 25 tablet 1 03/23/20 22 Active atorvastatin (LIPITOR) 80 mg tablet TAKE 1 TAB BY MOUTH EVERY OTHER DAY ALTERNATING WITH 1/2 TAB EVERY OTHER NIGHT 135 tablet 1 07/24/20 24 Active amLODIPine (NORVASC) 5 mg tablet Take 1 tablet by mouth once daily 90 tablet 1 11/23/19 25 Active isosorbide mononitrate ER (IMDUR) 30 mg 24 hr tablet Take 1 tablet by mouth once daily 90 tablet 1 11/23/19 25 Active amLODIPine (NORVASC) 5 mg tablet Take 1 tablet by mouth once daily 90 tablet 1 06/02/20 24 025 Discontinued isosorbide mononitrate ER (IMDUR) 30 mg 24 hr tablet Take 1 tablet by mouth once daily 90 tablet 1 06/02/20 24 025 Discontinued Active Problems Problem Noted Date Diagnosed Date Essential hypertension, benign 05/08/2022 Pure hypercholesterolemia 05/08/2022 Abnormal stress test 03/24/2017 Other specified abnormal findings of blood chemi stry 03/03/2017 Overview (03/07/2019): In January 2017 AST and ALT are marginally elevated History of coronary artery stent placement 02/18 Overview (03/07/2019): In September of 2014 in circumflex Smoking 02/19/2016 Overview (03/07/2019): Quit in September 2014 CAD (coronary artery disease) 02/12/2016 Overview (03/07/2019): Patient had a moderate to coronary artery disease involving the right coronary artery and a borderline disease in the distal LAD Hx of myocardial infarction 02/12/2016 Resolved Problems Problem Noted Date Diagnosed Date Resolved Date Essential hypertension 03/06/202005/08 Dyslipidemia 02/12/2016 05/08/2022 Social History Tobacco Use Types Packs/Day Years Used Date Smoking Tobacco: Former Smokeless Tobacco: Never Tobacco Cessation:Counseling Given: Not Answered Sex and Gender Information Value Date Recorded Sex Assigned at Not on file 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 Gender Identity Not on file Sexual Orientation Not on file Last Filed Vital Signs Vital Sign Reading Time Taken Comments Blood Pressure 132/76 05/16/2024 8:15 AM CDT Pulse 46 05/16/2024 8:15 AM CDT Temperature 36.3 C (97.3 F) 03/26/2021 8:02 AM CDT Respiratory Rate - - Oxygen Saturation 96% 05/16/2024 8:15 AM CDT Inhaled Oxygen Concentration - - Weight 80.4 kg (177 lb 4.8 oz) 05/16/2024 8:15 A M CDT Height 177.8 cm (5' 10 ) 05/16/2024 8:15 AM CDT Body Mass Index 25.44 05/16/2024 8:15 AM CDT Plan of Treatment Not on file Procedures Procedure Name Priority Date/Time Associated Diagnosis Comments HEPATIC FUNCTION PANEL Routine 11/27/2024 7:38 AM CDT Coronary artery disease involving [place] coronary artery of [place] heart without angina pectoris Essential hypertension, benign Pure hypercholesterolemi a Abnormal liver function LIPID PANEL Routine 11/27/2024 7:38 AM CDT Coronary artery disease involving [place] coronary artery of [place] heart without angina pectoris Essential hypertension, benign Pure hypercholesterolemi a Abnormal liver function PSA SCREEN Routine 11/08/2019 11:36 AM CDT from Last 3 Months or Most Recently Relevant to Health Maintenance Results * (ABNORMAL) Hepatic function panel (11/27/2024 7:38 AM CDT) Pathologist [facility] Protein, Total 7.5 6.4 - 8.4 g/dL [facility] Albumin 4.7 3.6 - 5.1 g/dL [facility] Globulin 2.8 2.2 - 4.0 g/dL (calc) [facility] Alb/glob ratio 1.7 0.9 - 2.3 (calc) [facility] Bilirubin, total 1.1 0.2 - 1.2 mg/dL [facility] Bilirubin, direct 0.3(H) < OR = 0.2 mg/dL [facility] Bilirubin, indirect 0.8 0.2 - 1.2 mg/dL (calc) [facility] Alk phos 71 35 - 144 U/L [facility] AST 30 10 - 35 U/L [facility] ALT (SGPT) 25 9 - 46 U/L [facility] Blood 11/27/2024 7:38 AM CDT 11/27/2024 7:38 AM CDT Narrative [facility] - 11/28/2024 9:39 AM CDT FASTING:YES FASTING: YES us Gt Joiner MD LAB BLOOD ORDERABLES Final Result [facility] [address] [place] [id number] * Lipid panel (11/27/2024 7:38 AM CDT) [facility] Cholesterol 143 <200 mg/dL [facility] HDL 65 > OR = 40 mg/dL [facility] Triglycerides 68 <150 mg/dL [facility] LDL 64 mg/dL (calc) [facility] Comment: Reference range: <100 Desirable range <100 mg/dL for primary prevention; <70 mg/dL for patients with CHD or diabetic patients with > or = 2 CHD risk factors. LDL-C is now calculated using the Dave calculation, which is a validated novel method providing better accuracy than the Friedewald equation in the estimation of LDL-C. Jesus SS et al. [place]. 2013;310(19): 6831-6487 (http://education.Cosyforyou.iVengo/faq/FAD928) Chol/HDL ratio 2.2 <5.0 (calc) [facility] Non-HDL, (LDL+VLDL) 78 <130 mg/dL (calc) [facility] Comment: For patients with diabetes plus 1 major ASCVD risk factor, treating to a non-HDL-C goal of <100 mg/dL (LDL-C of <70 mg/dL) is considered a therapeutic option. Blood 11/27/2024 7:38 AM CDT 11/27/2024 7:38 AM CDT Narrative [facility] - 11/28/2024 9:39 AM CDT FASTING:YES FASTING: YES Gt Joiner MD LAB BLOOD ORDERABLES Final Result [facility] [address] [place] [address] [id number] * PSA screen (11/08/2019 11:36 AM CDT) PSA 1.5 < OR = 4.0 ng/mL [facility] [place] Comment: The total PSA value from this assay system is standardized against the WHO standard. The test result will be approximately 20% lower when compared to the equimolar-standardized total PSA (Page [place]). Comparison of serial PSA results should be interpreted with this fact in mind. This test was performed using the Siemens chemiluminescent method. Values obtained from different assay methods cannot be used interchangeably. PSA levels, regardless of value, should not be interpreted as absolute evidence of the presence or absence of disease. 11/08/2019 11:3 6 AM CDT 11/08/2019 11:37 AM CDT Narrative [facility] - 11/09/2019 5:54 AM CDT CC: DR. JOINER NON FASTING FASTING:NO FASTING: NO Resulting Agency Comment Performing Organization Information: Site ID: [place] Name: [facility] Address: [address] [place] [address] [place] [id number] Director: Daniel Armstrong D.O., MPH us Nikhil Vergara MD LAB BLOOD ORDERABLES Final R esult [facility] [employer] [place] from Last 3 Months or Most Recently Relevant to Health Maintenance Insurance HUMANA CHOICE MEDICARE PPO HUMANA CHOICE MEDICARE PPO Care Teams Casting Operator Relationship Specialty Start Date End Date Nikhil Vergara MD PCP - General Internal Medicine 03/03/19
--- OUTSIDE RECORDS SUMMARY | 2024-12-01 00:14 | XMS_ITS | Encounter Summary ---
Author Organization [facility] Healthcare Address [address] [place] [address] Care Team Providers Care Biostatistics Professor Name Role Phone Nikhil Vergara MD Primary Care Provider [phone] Encounter Details Date Type Department Care Team (Late st Contact Info) Description 11/28/2024 Results Follow-Up [facility] Medical Group Cardiology [address] [address] Naa Muñoz RN Social History Tobacco Use Types Packs/Day Years Used Date Smoking Tobacco: Former Smokeless Tobacco: Never Sex and Gender Information Value Date Recorded Sex Assigned at Not on file 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
--- OUTSIDE RECORDS SUMMARY | 2024-12-01 00:14 | XMS_ITS | Clinical Summary ---
Author Organization [facility] Address [address] [place] [address] Care Team Providers Care Home Decorator Name Role Phone Nikhil Vergara MD Primary Care Provider Allergies Active Allergy Reactions Criticality Noted Date [...] Date Essential hypertension 03/06/202005/08 Dyslipidemia 02/12/2016 05/08/2022 Encounters Date Type Department Care Team Description 11/28/2024 Results Follow-Up [facility] Medical [facility] Cardiology [address] [address] Naa Muñoz RN from Last 3 Months Surgical History Surgery Date Site/Laterality Comments CORONARY STENT PLACEMENT CARDIAC CATHETERIZATION Medical History Medical History Date Comments CAD (coronary artery disease) HLD (hyperlipidemia) [place] (myocardial infarction) (HCC) Abnormal stress test Family History Relation Name Status Comments Father Social History Tobacco Use Types Packs/Day Years Used Date Smoking Tobacco: Former Smokeless Tobacco: Never Tobacco Cessation:Counseling Given: Not Answered Sex and Gender Information Value Date Recorded Sex Assigned at Not on file 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 Gender Identity Not on file Sexual Orientation Not on file Obstetrics History Last Filed Vital Signs Vital Sign Reading [...] 05/16/2024 8:15 AM CDT Plan of Treatment Health Maintenance Due Date Last Done Comments Colon Cancer Screening-Colonoscopy 1955 Depression Screening 1955 Fall Risk Assessment 1955 Hepatitis C Screening 1955 DTaP/Tdap/Td Vaccine (1 - Tdap) 1967 Hepatitis B Screening 1974 Pneumococcal vaccine 65+ (1 of 1 - PCV) 2006 Zoster Vaccine (1 of 2) 2006 Abdominal Aortic Aneurysm (AAA) Screen 2021 Well Visit 65+ 2021 Prostate Cancer Screening-PSA 11/07/2021 11/08/2019 Influenza Vaccine (Season Ended) 2025 Procedures Procedure Name Priority Date/Time Associated Diagnosis Comments HEPATIC FUNCTION PANEL Routine 11/27/2024 7:38 AM CDT Coronary artery disease involving [place] coronary artery of [place] heart without angina pectoris Essential hypertension, benign Pure hypercholesterolemi a Abnormal liver function LIPID PANEL Routine 11/27/2024 7:38 AM CDT Coronary artery disease involving [place] coronary artery of [place] heart without angina pectoris Essential hypertension, benign Pure hypercholesterolemi a Abnormal liver function PSA SCREEN Routine 11/08/2019 11:36 AM CDT from Last 3 Months or Most Recently Relevant to Health Maintenance Results * (ABNORMAL) Hepatic function panel (11/27/2024 7:38 AM CDT) Pathologist [facility] Protein, Total 7.5 6.4 - 8.4 g/dL [...] Joiner MD LAB BLOOD ORDERABLES Final Result [facility] [address] [place] [address] * Lipid panel (11/27/2024 7:38 AM CDT) Pathologist [facility] Cholesterol 143 <200 mg/dL [facility] [...] factors. LDL-C is now calculated using the Jesus-Charlene calculation, which is a validated novel method providing better accuracy than the Friedewald equation in the estimation of LDL-C. Jesus SOMMER et al. [place]. 2013;310(19): 9401-3950 (http://education.Gamerizon Studio/faq/FVF100) Chol/HDL ratio 2.2 <5.0 (calc) [facility] [...] Joiner MD LAB BLOOD ORDERABLES Final Result Performing Organization Address City/[facility]/ZIP Co de Phone Number RIZ[facility] [address] [place] [address] [phone] * PSA screen (11/08/2019 11:36 AM CDT) PSA 1.5 < OR = 4.0 ng/mL [facility] [place] Comment: The total PSA value from this assay system is standardized against the WHO standard. The test result will be approximately 20% lower when compared to the equimolar-standardized total PSA (Page Maria C). Comparison of serial PSA results should be [...] Agency Comment Performing Organization Information: Site ID: [place] Name: [facility] Address: [address] [place] [id number] Director: Daniel Armstrong D.O., MPH us Nikhil Vergara MD LAB BLOOD ORDERABLES Final R esult [email or web address] [place] [employer] wills from Last 3 Months or Most Recently Relevant to Health Maintenance Insurance HUMANA CHOICE MEDICARE PPO HUMANA CHOICE MEDICARE PPO Care Teams Home Decorator Relationship Specialty Start Date End Date Nikhil Vergara MD PCP - General Internal Medicine 03/03/19
[2024-12-01 06:43] VITALS: BP 126/92; PULSE 72; RESP 20; TEMP 36.2; O2SAT 100; BMI 25.7
--- NOTE | 2024-12-01 06:45 | WPDANESEPPF ---
Anes - Initial Pre Proc Eval Procedure: Operation Date: 12/01/24 08:00 Proposed Procedures p Colonoscopy - Errol Castellanos MD Date/Time: 12/01/24 06:45 Surgeon: Errol Castellanos MD Pre Op Diagnosis: Other fecal abnormalities Patient Data Age: 69 Gender: M Height: 1.78 m Weight: 85 kg Allergies Allergy/AdvReac Type Severity Reaction Status Date / Time clopidogrel Allergy Intermediate HIVES Verified 12/01/24 06:41 Home Medications ?Medication ?Instructions ?Recorded ?Confirmed ?Type amlodipine 5 mg tablet 5 mg PO DAILY 08/16/24 12/01/24 History aspirin 81 mg tablet,delayed 81 mg PO DAILY 08/16/24 12/01/24 History release (Adult Low Dose Aspirin) atorvastatin 80 mg tablet 80 mg PO DAILY 08/16/24 12/01/24 History isosorbide mononitrate 30 mg 30 mg PO DAILY 08/16/24 12/01/24 History tablet,extended release 24 hr Patient hx anesthesia problems: none Family hx anesthesia problems: none Results Review: All pre-operative results and documents have been reviewed as part of the pre-operative evaluation. [facility] Social History Social History Years smoked: 30 Smoking status: Former smoker Tobacco type: cigarettes Alcohol intake: current Alcohol use details: Drinks socially Substance use type: does not use Living arrangements: with family Anes - Eval Final PreProcedure Day of Procedure 12/01/24 06:45 Patient weight: overweight Heart: regular rate and rhythm Lungs: clear to auscultation Airway: Mallampati scale class III Neurological: alert and oriented Last oral intake: >/= 8 hours ASA classification: III Emergent: no Anesthetic plan: proceed Anesthesia type and monitoring: general GIVS and standard monitoring Results Review: All pre-operative results and documents have been reviewed as part of the pre-operative evaluation. Informed Consent: The patient's anesthetic plan and its attendant risks and benefits were discussed with the patient/family/POA. Questions were solicited and answers provided to the satisfaction of the patient/family/POA.
[2024-12-01] MEDS: LACTATED RINGERS 1,000 ML 150 ML IV CONT (06:47)
--- NOTE | 2024-12-01 07:45 | PM.HPGS ---
History of Present Illness History of Present Illness Consent: Risks, benefits, and alternatives have been discussed and questions answered. Patient agrees to proceed with procedure. Chief complaint: colon polyp Narrative: Eugene Vazquez is a 69 year old male with colon polyp 7 years ago Review of Systems Review of Systems: All systems reviewed & are unremarkable except as noted in HPI and below PMFSH Past Medical History Medical History (Updated 12/01/24 @ 07:46 by Errol Castellanos MD) Colon polyp Social History Social History Years smoked: 30 Smoking status: Former smoker Tobacco type: cigarettes Alcohol intake: current Alcohol use details: Drinks socially Substance use type: does not use Living arrangements: with family Meds Home Medications and Allergies Home Medications ?Medication ?Instructions ?Recorded ?Confirmed ?Type amlodipine 5 mg tablet 5 mg PO DAILY 08/16/24 12/01/24 History aspirin 81 mg tablet,delayed 81 mg PO DAILY 08/16/24 12/01/24 History release (Adult Low Dose Aspirin) atorvastatin 80 mg tablet 80 mg PO DAILY 08/16/24 12/01/24 History isosorbide mononitrate 30 mg 30 mg PO DAILY 08/16/24 12/01/24 History tablet,extended release 24 hr Allergies Allergy/AdvReac Type Severity Reaction Status Date / Time clopidogrel Allergy Intermediate HIVES Verified 12/01/24 06:41 Vital Signs Vital Signs - 24 hr 12/01/24 06:43 Temperature 97.2 F L Pulse Rate 72 Respiratory Rate 20 Blood Pressure 126/92 H Pulse Oximetry 100 Oxygen Delivery Room Air Exam Const: General: comfortable and no acute distress HENMT: Face/Nose/Sinus: Normal nares present Eyes: General: appearance normal, both eyes and all related structures Neck: Neck: no JVD Resp: Auscultation: clear to auscultation bilaterally Cardio: Rate: regular rate Rhythm: regular rhythm GI: Inspection: non-distended GI Palp: Yes Soft to palpation Skin: General skin exam: normal color Neuro: General: gait normal Speech: normal speech Extrem: General: normal to inspection Psych: Mental Status: mental status grossly normal Assessment and Plan Assessment and plan (1) Colon polyp: Code(s): K63.5 - Polyp of colon Status: Acute Assessment and Plan: colonoscopy
[2024-12-01 08:07] VITALS: BP 125/78; PULSE 56; RESP 21; O2SAT 98
[2024-12-01 08:17] VITALS: BP 125/79; PULSE 55; RESP 18; O2SAT 98
[2024-12-01 08:27] VITALS: BP 137/86; PULSE 54; RESP 12; O2SAT 97
== END 2024-12-01 08:35 | disposition home or self-care (01) ==
PROVIDERS: PCP Internal Medicine; Referring Provider Internal Medicine; Visit Provider Internal Medicine Gastroenterology
PROC: 0DJD8ZZ Inspection of Lower Intestinal Tract, Via Natural or Artificial Opening Endoscopic (ICD-10-PCS; CPT 45378; principal; 2024-12-01 08:00)
DX: Z12.11 Encounter for screening for malignant neoplasm of colon (principal); D12.2 Benign neoplasm of ascending colon; K57.30 Diverticulosis of large intestine without perforation or abscess without bleeding; K64.8 Other hemorrhoids; Z87.891 Personal history of nicotine dependence
CPT/HCPCS: 45385; 88305; J2003; J2704; J7120